=== PATIENT | male | born 1995 ===

== ENCOUNTER 2021-05-22 02:52 | Emergency (ER) | payer SELFPAY ==
[~2021-05-22] VITALS: Ht 188 cm; Wt 103.0 kg
[2021-05-22 03:42] LABS: HEMATOCRIT 42.9 % (36.7-47.1); MEAN CORPUSCULAR HEMOGLOBIN 30.6 uug (23.8-33.4); PLATELET COUNT (AUTO) 166 K/uL (152-348)
[2021-05-22 03:50] LABS: CREATININE 1.1 mg/dL (0.6-1.3); POTASSIUM 3.6 mmol/L (3.5-5.1)
== END 2021-05-22 04:20 | disposition home or self-care (01) ==
LOC: ER 02:57
DX: R07.89 Other chest pain (principal); Z86.16 Personal history of COVID-19; R00.1 Bradycardia, unspecified; I45.10 Unspecified right bundle-branch block; R03.0 Elevated blood-pressure reading, without diagnosis of hypertension
CPT/HCPCS: 36415; 70030-TC; 71045; 85025; 93005; A4663